=== PATIENT | male | born 1955 | race African-American/Black ===

== ENCOUNTER → 2018-02-13 | Outpatient (CLI) | payer OTHER ==
--- NOTE | 2018-02-13 16:10 | RAD ---
EXAM: AP, oblique and lateral views of both knees DATE: 02/13/2018 12:00 AM INDICATION: KNEE PAIN, NO RECENT INJURY COMPARISON: 11/02/2010-knee radiographs FINDINGS: Right knee: Mild medial joint space narrowing with prominent medial compartment osteophytes. No significant knee joint effusion. No evidence of acute fracture or dislocation. Left knee: Mild medial joint space narrowing with prominent associated osteophytes. No significant knee joint effusion. No evidence of acute fracture or dislocation. IMPRESSION: 1. Bilateral medial compartment predominant knee joint osteoarthritis, grossly stable when compared to 11/02/2010 2. No evidence of acute fracture or dislocation. Electronically signed by: Chito Subramanian MD (02/13/2018 4:06 PM) [facility]
== END | disposition home or self-care (01) ==
LOC: RAD 13:00
PROVIDERS: ATTEND General Practice
DX: M17.0 Bilateral primary osteoarthritis of knee (principal); M25.762 Osteophyte, left knee; M25.761 Osteophyte, right knee
CPT/HCPCS: 73562

== ENCOUNTER → 2018-05-08 | Outpatient (CLI) | payer OTHER ==
--- NOTE | 2018-05-08 14:48 | RAD ---
Scrotal ultrasound 05/08/2018 CLINICAL HISTORY: Left scrotal pain. TECHNIQUE: Using a combination of real-time ultrasound imaging and color-flow and pulse Doppler imaging techniques, duplex evaluation of the scrotal sac and its contents was performed. Multiple images were obtained. FINDINGS: Both testicles are within normal limits in size. The right testicle measures 4.2 x 1.9 x 2.6 cm in longitudinal, transverse, and AP dimensions. The left testicle measures 4.2 x 3.3 x 2.6 cm in size. No focal abnormality of either testicle is seen. A extratesticular cyst is seen lateral to the right testicle which measures 1.4 cm in greatest diameter. This is likely related to the epididymis. A 4 mm cyst is seen involving the left epididymal head. Increased color flow Doppler is seen within the left epididymis and left testicle. These findings are consistent with epididymitis/orchitis. There is a very small right hydrocele. A small to moderate left hydrocele is seen. IMPRESSION: 1. Findings are seen consistent with left epididymitis/left orchitis. 2. Very small right hydrocele. [id number] left hydrocele. 3. Cysts are seen in the region of the epididymis, right greater than left as outlined above. Electronically signed by: King Serra MD (05/08/2018 2:45 PM) [id number]
== END | disposition home or self-care (01) ==
LOC: US 10:56
PROVIDERS: ATTEND Physician Assistant
DX: N43.2 Other hydrocele (principal); N50.3 Cyst of epididymis
CPT/HCPCS: 76870

== ENCOUNTER → 2019-08-31 | Outpatient (CLI) | payer OTHER ==
--- NOTE | 2019-08-31 16:11 | RAD ---
HAND LEFT 2V DATE: 08/31/2019 12:00 AM INDICATION: Pain COMPARISON: None. FINDINGS: Bones: There is no evidence of acute fracture or dislocation. Joints: Moderate triscaphe joint and first CMC joint degenerative changes. Miscellaneous: None. IMPRESSION: No evidence of acute fracture. Electronically signed by: Quan Negron MD (08/31/2019 4:09 PM) [id number]
== END | disposition home or self-care (01) ==
LOC: DXRAD 12:38
PROVIDERS: ATTEND Physician Assistant
DX: M18.12 Unilateral primary osteoarthritis of first carpometacarpal joint, left hand (principal)
CPT/HCPCS: 73120